=== PATIENT | male | born 1945 | race Caucasian/White ===

== ENCOUNTER 2018-11-02 09:00 | Inpatient (IN) | payer OTHER ==
[~2018-11-02] VITALS: Ht 172.7 cm; Wt 68.0 kg
--- NOTE | ~2018-11-02 | H ---
[address] [address] HISTORY AND PHYSICAL Name: PAIGE ACOSTA Room: [address] IN .R.#: [id number] Admission: 11/02/18 Attend Phys: Michael Huerta MD, F Discharge: 11/04/18 Date of : 47 Report #: [id number] THIS REPORT FOR: //name// Please refer to the History and Physical performed in the physician's office. By: 1241Medical Records Staff YARED /DIXON
[2018-11-02 09:49] LABS: HEMATOCRIT 40.6 % (42.0-52.0); HEMOGLOBIN 13.7 gm/dL (14.0-18.0); MCH 29.3 pg (26.0-34.0); MCHC 33.6 g/dL (28.0-37.0); MCV 87.2 fL (80.0-100.0); MPV 8.1 fl. (7.2-11.1); RBC 4.65 mil/uL (4.50-6.00); RDW-CV 13.3 % (10.5-14.5); WBC 6.1 thou/uL (4.0-11.0)
[2018-11-02 09:54] VITALS: BP 122/76
[2018-11-02 09:59] LABS: CALCIUM 9.4 mg/dL (8.5-10.1); CREATININE 1.2 mg/dL (0.6-1.3); POTASSIUM 4.1 mmol/L (3.5-5.1)
[2018-11-02 10:01] LABS: APTT 27.7 Seconds (25.0-31.3); PROTIME 9.9 Seconds (9.20-11.50)
[2018-11-02 10:04] LABS: ALBUMIN 3.7 g/dL (3.4-5.0); TOTAL BILIRUBIN 0.4 mg/dL (<0.1-1.0); TOTAL PROTEIN 7.4 g/dL (6.4-8.2)
[2018-11-02] MEDS ORDERED: FLOMAX0.4 MG PO (10:10)
[2018-11-02] MEDS ORDERED: XARELTO20 MG PO (10:10)
[2018-11-02] MEDS ORDERED: LISINOPRIL5 MG PO (10:10)
[2018-11-02] MEDS ORDERED: COREG6.25 MG PO (10:11)
--- NOTE | 2018-11-02 13:54 | EKG ---
[place] [address] ELECTROCARDIOGRAM REPORT Name: PAIGE ACOSTA Room: [facility]#: [id number] Admission: 11/02/18 Attend Phys: Christian Ceballos MD Discharge: Date of : 47 Report #: [id number] THIS REPORT FOR: //name// [facility] Test Date: 2018-11-02 Test Time: 10:11:48 Pat Name: PAIGE ACOSTA Department: Room: Gender: M Shredded Filler Machine Wrapper Layer: : 1945 Requested By: Michael Huerta Order Number: [id number] Reading MD: Michael Huerta Measurements Intervals [place] Rate: 76 P: MN: QRS: 53 QRSD: 92 T: 56 QT: 368 QTc: 414 Interpretive Statements Atrial fibrillation Abnormal R-wave progression, early transition No previous ECG available for comparison Electronically Signed On 11-02-2018 13:54:10 TRANSCRIBING OPERATOR HEAD by Michael Huerta [email or web address] <ELECTRONICALLY SIGNED> By: Michael Huerta MD, [facility] 11/02/18 1354 1011 1011 Michael Huerta MD, FACC /EPI
[2018-11-02 16:15] VITALS: BP 128/86
[2018-11-02] MEDS ORDERED: CRESTOR5 MG PO (16:48)
--- NOTE | 2018-11-02 18:19 | EKG ---
[place] [address] ELECTROCARDIOGRAM REPORT Name: ACOSTAPAIGE Room: [address] ADM IN M.R.#: [id number] Admission: 11/02/18 Attend Phys: Michael Huerta MD, F Discharge: Date of : 47 Report #: [id number] THIS REPORT FOR: //name// [facility] Test Date: 2018-11-02 Test Time: 16:32:05 Pat Name: PAIGE ACOSTA Department: Room: [address] Gender: M Perfect Bind Machine Operator: [facility] : 1945 Requested By: Michael Huerta Order Number: [id number] Dana MD: Domenico Zeng Measurements Intervals [place] Rate: 70 P: CO: 207 QRS: 45 QRSD: 91 T: 41 QT: 393 QTc: 425 Interpretive Statements Atrial-paced complexes Compared to ECG 11/02/2018 10:11:48 Atrial fibrillation no longer present Electronically Signed On 11-02-2018 18:19:23 ERECTOR OPERATOR by Domenico Zeng [email or web address] <ELECTRONICALLY SIGNED> By: Domenico Zeng MD, [facility] 11/02/18 1819 1632 31 Domenico Zeng MD, FACC /EPI
[2018-11-02 19:30] VITALS: BP 113/69
[2018-11-03] VITALS (7 sets, daily range): BP systolic 95–127; BP diastolic 47–77
--- NOTE | 2018-11-03 05:05 | NUR ---
Assumed Pt care after report at 1930. Pt awake and oriented x4. VS Stable. cardiac monitor in place, tracing SR with occasional PVCs and PACs. Post op incision site intact and dry. O2 sat 96% in room air. Denies any pain nor discomfort. Kept left arm sling in place. Advised not to lift left arm above shoulder for 1 week. Pt showed understanding. Call light within reach. Hourly rounding done for safety.
--- NOTE | 2018-11-03 11:59 | EKG ---
[place] [address] ELECTROCARDIOGRAM REPORT Name: PAIGE ACOSTA Room: [address] ADM IN [facility].#: [id number] Admission: 11/02/18 Attend Phys: Michael Huerta MD, F Discharge: Date of : 47 Report #: [id number] THIS REPORT FOR: //name// [facility] Test Date: 2018-11-03 Test Time: 08:18:21 Pat Name: PAIGE ACOSTA Department: Room: [address] Gender: M Associate Attorney: : 1945 Requested By: Michael Huerta Order Number: [id number] Dana MD: Michael Huerta Measurements Intervals [place] Rate: 70 P: DC: 189 QRS: 54 QRSD: 87 T: 61 QT: 396 QTc: 428 Interpretive Statements Atrial-paced rhythm Borderline ST elevation, anterolateral leads Compared to ECG 11/02/2018 16:32:05 no change Electronically Signed On 11-03-2018 11:58:52 MONITORING AND EVALUATION ADVISOR by Michael Huerta [email or web address] <ELECTRONICALLY SIGNED> By: Michael Huerta MD, [facility] 11/03/18 1158 7 7 Michael Huerta MD, FACC /EPI
[2018-11-04] VITALS: BP 95/60
[2018-11-04 04:00] VITALS: BP 107/62
--- NOTE | 2018-11-04 05:33 | NUR ---
VITALS WNL. SEE MAR. SEE CHARING. HOURLY ROUNDING FOR SAFETY.
[2018-11-04 07:35] VITALS: BP 113/69
[2018-11-04 08:57] VITALS: BP 107/67
[2018-11-04] MEDS ORDERED: SORINE 80 MG TA80 M1 PO (09:22)
[2018-11-04] MEDS ORDERED: TYLENOL325 MG PO (09:23)
--- NOTE | 2018-11-04 10:28 | NUR ---
PATIENT CARE ASSUMED AT 0700. PATIENT AOX4. WALKING AROUND ROOM INDEPENDENTLY. PACEPAKER PLACED YESTERDAY. INCISION ASSESSMENT WNL. PATIENT RE-EDUCATED NOT TO LIFT ARM ABOVE HEAD FOR 7 DAYS. PATIENT DOES WELL WITH RESTRICTION. PATIENT DISCHARGED BY CARDIOLOGY. EXTENSIVE EDUCATION GIVEN ABOUT MEDICATION CHANGES, FOLLOW UP APPOINTMENT, ACTIVITY RESTRICTIONS, AND DIETARY CHANGES. PATIENT AND SPOUSE DENY FURTHER QUESTIONS. DISCHARGED AT 1020 BY WHEELCHAIR WITH CASTING CHIPPER AND SPOUSE. ALL BELONGINGS TAKEN WITH PATIENT.
--- NOTE | 2018-11-04 12:16 | CARD ---
[address] [address] CARDIAC CATH REPORT Name: PAIGE ACOSTA Room: [address] IN .R.#: [id number] Admission: 11/02/18 Attend Phys: Michael Huerta MD, F Discharge: 11/04/18 Date of : 47 Report #: [id number] THIS REPORT FOR: //name// APPROVED REPORT Study performed: 11/02/2018 10:49:39 Patient Status: OP Room #: Event Personnel: Michael Huerta Sharepoint Web Developer, Clementina Yuan RN Shrimp Boat Captain, Oscar Lu (R) Monitor, Denis Reardon Scrub Exam: Insertion of Dual Chamber Permanent Pacemaker Indications: Sick Sinus Syndrome/Tachy Zheng Syndrome The patient is a 73 year-old male with a history of Atrial Fibrillation. Patient Info Anticoagulant Therapy: xarelto Conscious Sedation Versed 2 mg Implanted Devices: permanent mri compatible dual chamber biotronic pacemaker and leads Procedure The patient underwent informed consent. We discussed the details of the procedure including the risks, which include, but not limited to bleeding, infection, vascular damage, cardiac perforation, and pneumothorax. He understood these risks and was willing to proceed. As such, was brought to the EP/Cardiac Catheterization laboratory in a fasting and sedated state and prepped and draped in a sterile fashion, received IV antibiotics prior to initiation of the procedure and a venogram was performed showing patency of the left axillary vein. The patient underwent conscious sedation, with no related complications. The patient was brought to the EP/Cardiac Catheterization laboratory and the left chest and shoulder were prepped and draped in a sterile manner. During this case, Fluoroscopy and visipaque 10cc were used for imaging. The left subclavian region was infiltrated with 2% Lidocaine subcutaneous anesthesia. A transverse incision was made in the [place] [address] CARDIAC CATH REPORT Name: PAIGE ACOSTA Room: [address]#: [id number] Admission: 11/02/18 Attend Phys: Michael Huerta MD, F Discharge: 11/04/18 Date of : 47 Report #: [id number] The subcutaneous pocket was formed via blunt dissection. Percutaneous venous access was achieved and an introducer sheath was inserted into the left Subclavian vein. Sheaths were positions using the modified Seldinger technique Through the introducer sheaths the atrial and ventricular lead wires were positioned in the right atrial appendage and right ventricular apex respectively. Utilizing fluoroscopic guidance, the atrial and ventricular lead wires were advanced over the wires and positioned in the right atria and right ventricle respectively. Capturing and sensing thresholds were verified. The patient's initial ecg showed atrial fibrillation. However, on arrival to the mine laborer, the pt was in nsr. The pt was given 150 mg of IV amiodarone Electrode Parameters P Wave: 1.4 R Wave: 10 mv Atrial Threshold: 0.6 v @ o.4 ms Ventricular Threshold: 0.8 v @ 0.4 ms Atrial Resistance: 507 ohm Ventricular Resistance: 604 ohm Dual Chamber The atrial and ventricular leads were then secured using 0 silk sutures. The subcutaneous pocket was irrigated with ancef antibiotic solution.The atrial and ventricular leads were attached to the appropriate receptacles on the pulse generator and set screws firmly tightened to insure adequate contact and stability. The lead and pulse generator were placed into the subcutaneous pocket. Sharp and sponge counts were confirmed to be correct. At this time the pocket was closed subcutaneously with a 0 Vicryl and the skin was closed with a 4.0 Vicryl. The operative site was dressed in sterile fashion with skin affix and the patient was transferred to the floor in stable condition. Complications The patient tolerated the procedure well and there were no complications associated with the procedure. Findings Specimens Removed: No Estimated Blood Loss: 5 [place] [address] CARDIAC CATH REPORT Name: ACOSTAPAIGE Room: [address] IN [facility]#: [id number] Admission: 11/02/18 Attend Phys: Michael Huerta MD, F Discharge: 11/04/18 Date of : 47 Report #: [id number] 1. successful placement of a dual chamber pacemaker 2. plan to start the pt on sotalol in an effort to maintain nsr <ELECTRONICALLY SIGNED> By: Michael Huerta MD, FACC 11/04/18 1216 15 1216Dakorin Huerta MD, FACC /INF
--- NOTE | 2018-11-06 17:14 | D ---
[address] [address] DISCHARGE SUMMARY Name: PAIGE ACOSTA Room: [address] IN M.R.#: [id number] Admission: 11/02/18 Attend Phys: Michael Huerta MD, F Discharge: 11/04/18 Date of : 47 Report #: [id number] THIS REPORT FOR: //name// CC: Michael Huerta Patient's Chart Pita Juarez MD DATE OF DISCHARGE: 11/04/2018 DISCHARGE DIAGNOSES: 1. Tachybrady syndrome. 2. Paroxysmal atrial fibrillation. 3. Sick sinus syndrome. 4. Hypertension. CONSULTANTS: None. PROCEDURES: Placement of a permanent dual chamber pacemaker. HISTORY OF PRESENT ILLNESS: The patient is a 73-year-old white male who was brought to the outpatient department to perform placement of a permanent pacemaker. The patient has a history of paroxysmal atrial fibrillation. This was detected on a visit to the office. He has been chronically anticoagulated with Xarelto. He has been followed by my partner, Dr. Ceballos. He actually underwent a nuclear stress test in March of 2018 that showed no evidence of ischemia. Echocardiogram in February of 2018 showed an ejection fraction of 50%. The patient wore a previous Zio patch ordered by Dr. Ceballos in February 2018. He was noted to have pauses up to 3 seconds. He was taken off of digoxin. In June, he was in the office and apparently was in sinus rhythm and atenolol was decreased to 6.25 mg in the morning and 12.5 mg in the evening. Recently complained of fatigue. He also gets lightheaded if he bends over. He has occasional indigestion. He has been sleepy lately. He does note some exertional dyspnea. The patient saw my nurse practitioner, Carlotta Omalley on October 18. She ordered an event recorder. Event recorder showed AFib with pauses of over [address] Ceballos recommended a permanent pacemaker. The patient has no syncope or bleeding. PAST MEDICAL HISTORY: Significant for cataract extraction. He has a history of hypertension, hyperlipidemia. CURRENT MEDICATIONS: Include lisinopril for hypertension, Xarelto was stopped 48 hours prior to admission. He is on Flomax, low dose carvedilol. ALLERGIES: He has intolerance to CODEINE. PHYSICAL EXAMINATION: [place] [address] DISCHARGE SUMMARY Name: PAIGE ACOSTA Room: [address]#: [id number] Admission: 11/02/18 Attend Phys: Michael Huerta MD, F Discharge: 11/04/18 Date of : 47 Report #: [id number] VITAL SIGNS: Blood pressure 110/60, pulse is 60 and irregular. CHEST: Clear to auscultation. CARDIAC: Irregular rhythm. ABDOMEN: Soft. EXTREMITIES: Had no edema. SKIN: Warm, dry. NEUROLOGIC: Nonfocal. Lab work on admission, he had potassium of 4.1, creatinine 1.2, glucose 96. White blood cell count 6.1, hemoglobin 13.6. HOSPITAL COURSE: The patient was brought to the outpatient department. Initially, the patient appeared to be in atrial fibrillation with controlled response. However, when the patient was taken to the mobile lab technician, he appeared to be in sinus rhythm. He then felt to have paroxysmal AFib and decided to implant a permanent dual chamber pacemaker. I then placed a permanent dual chamber Biotronik MRI compatible pacemaker through the left subclavian vein. He tolerated the procedure well. Followup chest x-ray showed no pneumothorax. At this time, I decided to switch him from carvedilol to sotalol in an effort to maintain sinus rhythm. The patient required 5 doses of in hospital sotalol prior to discharge. While hospitalized, the patient had no complaints. He was ambulating in the halls. He remained atrial paced at 70 beats per minute. The patient will be discharged on his home medications that include lisinopril 5 mg a day. He will be started back on Xarelto 20 mg with supper, Flomax 0.4 mg a day. He was switched from carvedilol to sotalol 80 mg twice a day. He was discharged to return to care of Dr. Carvajal for routine medical care. I did recommend that he return to see me in the Cardiology Clinic in 2 weeks for pacemaker followup. He was sent home with a transmitter to check his pacemaker from home. If he had recurrent palpitations or bleeding, he was to contact my office. If he has recurrent atrial fibrillation, would consider increasing dose of sotalol. He was not to lift the left arm above his head or do any heavy lifting for the next 2 weeks. He was felt to have a good prognosis from a cardiac standpoint. <ELECTRONICALLY SIGNED> By: Michael Huerta MD, FACC 11/06/18 1714 1325 1726Dakorin Huerta MD, FACC /nt
== END 2018-11-04 10:20 | disposition home or self-care (01) | DRG 243 ==
LOC: M.CL 09:00 → M.TBA-CV 15:56 → M.2W 15:56
PROVIDERS: ADMIT Internal Medicine Cardiovascular Disease
PROC: 0JH606Z Insertion of Pacemaker, Dual Chamber into Chest Subcutaneous Tissue and Fascia, Open Approach (ICD-10-PCS; principal; 2018-11-02)
PROC: 02HK3JZ Insertion of Pacemaker Lead into Right Ventricle, Percutaneous Approach (ICD-10-PCS; principal; 2018-11-02)
PROC: B51NZZZ Fluoroscopy of Left Upper Extremity Veins (ICD-10-PCS; principal; 2018-11-02)
PROC: 02H63JZ Insertion of Pacemaker Lead into Right Atrium, Percutaneous Approach (ICD-10-PCS; principal; 2018-11-02)
DX: I49.5 Sick sinus syndrome (principal); D68.69 Other thrombophilia; E78.5 Hyperlipidemia, unspecified; I48.0 Paroxysmal atrial fibrillation; I10 Essential (primary) hypertension; Z98.49 Cataract extraction status, unspecified eye; Z79.899 Other long term (current) drug therapy; Z88.5 Allergy status to narcotic agent; Z79.01 Long term (current) use of anticoagulants